=== PATIENT | female | born 1955 | race Caucasian/White ===

== ENCOUNTER 2017-01-20 09:25 | Outpatient (CLI) | payer OTHER | END 2017-01-20 09:26 | disposition home or self-care (01) | DX: I10 Essential (primary) hypertension (principal); R73.09 Other abnormal glucose; E03.9 Hypothyroidism, unspecified ==

== ENCOUNTER 2017-05-13 08:25 | Outpatient (CLI) | payer OTHER ==
[2017-05-13 09:00] LABS: HEMOGLOBIN A1C 0.59 g/dL
[2017-05-13 09:02] LABS: CHOL/HDL RATIO 2.9 (<4.4); CHOLESTEROL 185 mg/dL; HDL CHOLESTEROL 63 mg/dL; LDL/HDL RATIO 1.6 (<4.4); TRIGLYCERIDES 101 mg/dL; VLDL CHOLESTEROL 20 mg/dL
== END 2017-05-13 08:26 | disposition home or self-care (01) ==
LOC: LAB 08:25
PROVIDERS: ATTEND Family Medicine
DX: E78.5 Hyperlipidemia, unspecified (principal); R73.03 Prediabetes
CPT/HCPCS: 36415; 80061; 83036

== ENCOUNTER 2018-03-28 08:00 | Outpatient (CLI) | payer OTHER ==
[2018-03-28 12:58] LABS: ALBUMIN 4.1 g/dL (3.2-5.5); ALBUMIN/GLOBULIN RATIO 1.3 (1.0-2.2); ALKALINE PHOSPHATASE 61 IU/L (42-121); ALT ALANINE AMINOTRANSFERASE 30 IU/L (10-60); AST ASPARTATE AMINOTRANSFERASE 35 IU/L (10-42); BILIRUBIN,TOTAL 1.4 mg/dL (0.2-1.0); BUN - BLOOD UREA NITROGEN 10 mg/dL (6-20); CALCIUM 9.3 mg/dL (8.5-10.3); CARBON DIOXIDE - CO2 25 mmol/L (21-32); CHLORIDE 101 mmol/L (101-111); CHOL/HDL RATIO 3.2 (<4.4); CHOLESTEROL 204 mg/dL; CREATININE 0.7 mg/dL (0.4-1.0); GFR - MDRD 85 (>89); GLUCOSE 118 mg/dL (70-100); HB2 TOTAL 15.8 g/dL; HDL CHOLESTEROL 64 mg/dL; HEMOGLOBIN A1C 0.63 g/dL; HEMOGLOBIN A1C % 5.8 % (4.6-6.2); LDL CHOLESTEROL,CALCULATED 115 mg/dL; LDL/HDL RATIO 1.8 (<4.4); SODIUM 137 mmol/L (135-145); TOTAL PROTEIN 7.3 g/dL (6.7-8.2); VLDL CHOLESTEROL 25 mg/dL
[2018-03-28 13:00] LABS: BASOPHILS # (AUTO) 0.1 10^3/uL (0.0-0.1); BASOPHILS % (AUTO) 1.1 %; EOSINOPHILS # (AUTO) 0.2 10^3/uL (0.0-0.7); HGB - HEMOGLOBIN 13.9 g/dL (12.0-16.0); LYMPHOCYTES # (AUTO) 1.8 10^3/uL (1.5-3.5); MEAN CORPUSCULAR HEMOGLOBIN 30.5 pg (27.0-31.0); MEAN CORPUSCULAR HGB CONC 33.7 g/dL (32.0-36.0); MEAN CORPUSCULAR VOLUME 90.6 fL (81.0-99.0); MEAN PLATELET VOLUME 8.2 fL (7.9-10.8); MONOCYTES # (AUTO) 0.6 10^3/uL (0.0-1.0); NEUTROPHILS % (AUTO) 53.9 %; PLT - PLATELET COUNT 273 10^3/uL (130-450); RED BLOOD COUNT 4.55 10^6/uL (4.20-5.40); RED CELL DISTRIBUTION WIDTH 13.1 % (12.0-15.0); WHITE BLOOD COUNT 5.7 x10^3/uL (4.8-10.8)
== END 2018-03-28 08:01 | disposition home or self-care (01) ==
LOC: LAB.WCP 08:00
PROVIDERS: ATTEND Family Medicine
DX: I10 Essential (primary) hypertension (principal); E78.5 Hyperlipidemia, unspecified; R73.09 Other abnormal glucose; E03.9 Hypothyroidism, unspecified
CPT/HCPCS: 36415; 80053; 80061; 83036; 83721; 84443; 85025

== ENCOUNTER 2019-02-27 08:00 | Outpatient (CLI) | payer OTHER ==
[2019-02-27 12:33] LABS: BASOPHILS # (AUTO) 0.1 10^3/uL (0.0-0.1); EOSINOPHILS # (AUTO) 0.1 10^3/uL (0.0-0.7); EOSINOPHILS % (AUTO) 2.8 %; LYMPHOCYTES # (AUTO) 1.8 10^3/uL (1.5-3.5); LYMPHOCYTES % (AUTO) 35.1 %; MEAN CORPUSCULAR HEMOGLOBIN 30.3 pg (27.0-31.0); MEAN CORPUSCULAR HGB CONC 33.8 g/dL (32.0-36.0); MEAN CORPUSCULAR VOLUME 89.7 fL (81.0-99.0); MEAN PLATELET VOLUME 8.3 fL (7.9-10.8); MONOCYTES # (AUTO) 0.5 10^3/uL (0.0-1.0); MONOCYTES % (AUTO) 10.5 %; NEUTROPHILS # (AUTO) 2.6 10^3/uL (1.5-6.6); NEUTROPHILS % (AUTO) 50.6 %; PLT - PLATELET COUNT 262 10^3/uL (130-450); RED BLOOD COUNT 4.62 10^6/uL (4.20-5.40); RED CELL DISTRIBUTION WIDTH 13.1 % (12.0-15.0); WHITE BLOOD COUNT 5.2 x10^3/uL (4.8-10.8)
[2019-02-27 13:33] LABS: HB2 TOTAL 15.2 g/dL; HEMOGLOBIN A1C 0.59 g/dL; HEMOGLOBIN A1C % 5.7 % (4.6-6.2)
[2019-02-27 13:36] LABS: ALBUMIN 4.2 g/dL (3.2-5.5); ALBUMIN/GLOBULIN RATIO 1.3 (1.0-2.2); ALKALINE PHOSPHATASE 67 IU/L (42-121); ALT ALANINE AMINOTRANSFERASE 23 IU/L (10-60); AST ASPARTATE AMINOTRANSFERASE 25 IU/L (10-42); BILIRUBIN,TOTAL 1.2 mg/dL (0.2-1.0); BUN - BLOOD UREA NITROGEN 11 mg/dL (6-20); CALCIUM 9.2 mg/dL (8.5-10.3); CARBON DIOXIDE - CO2 27 mmol/L (21-32); CHLORIDE 101 mmol/L (101-111); CHOL/HDL RATIO 2.7 (<4.4); CHOLESTEROL 190 mg/dL; CREATININE 0.6 mg/dL (0.4-1.0); GFR - MDRD 101 (>89); GLUCOSE 113 mg/dL (70-100); HDL CHOLESTEROL 70 mg/dL; LDL CHOLESTEROL,CALCULATED 97 mg/dL; LDL/HDL RATIO 1.4 (<4.4); SODIUM 136 mmol/L (135-145); TOTAL PROTEIN 7.4 g/dL (6.7-8.2); VLDL CHOLESTEROL 23 mg/dL
[2019-02-27 13:49] LABS: CREATININE,URINE 75.8 mg/dL
[2019-02-27 13:50] LABS: MICROALBUMIN,URINE < 0.2 mg/dL (0-300.0)
== END 2019-02-27 23:59 | disposition home or self-care (01) ==
LOC: LAB.WCP 08:00
PROVIDERS: ATTEND Family Medicine
DX: I10 Essential (primary) hypertension (principal); E78.5 Hyperlipidemia, unspecified; R73.09 Other abnormal glucose; E03.9 Hypothyroidism, unspecified
CPT/HCPCS: 36415; 80053; 80061; 82043; 82570; 83036; 83721; 84443; 85025

== ENCOUNTER 2019-04-03 13:30 | Outpatient (CLI) | payer OTHER ==
--- NOTE | 2019-04-03 16:51 | Mammography Report ---
Reason: SCREENING MAMMO Procedure Date: 04/03/2019 Accession Number: [id number] / [id number] Procedure: MGN - Screening Mammo Dig Bilat CPT Code: FULL RESULT: EXAM: Screening Mammo Dig Bilat DATE: 04/03/2019 1:48 PM CLINICAL HISTORY: Routine screening. No reported personal history of breast cancer. Family history breast cancer paternal grandmother age 80. TECHNIQUE: (B) - Bilateral CC and MLO views were obtained. COMPARISON: 09/09/2016 through 06/08/2010 PARENCHYMAL PATTERN: (A) - The breasts demonstrate scattered fibroglandular densities bilaterally. FINDINGS: Bilateral breasts: There are no suspicious masses, calcifications, or areas of distortion. IMPRESSION: Negative examination. BI-RADS category 1. RECOMMENDATION: (ANNUAL) - Recommend routine annual screening mammography. BI-RADS CATEGORY: (1) - Negative. STANDARD QUALIFYING STATEMENTS: 1. This examination was not reviewed with the aid of Computer-Aided Detection (CAD). 2. A negative or benign imaging report should not preclude biopsy if clinically suspicious findings are present. 3. Dense breasts may obscure an underlying neoplasm. 4. This examination was reviewed without the aid of 3D breast imaging (tomosynthesis).
== END 2019-04-03 13:31 | disposition home or self-care (01) ==
LOC: DI.N 13:30
DX: Z12.31 Encounter for screening mammogram for malignant neoplasm of breast (principal); Z80.3 Family history of malignant neoplasm of breast
CPT/HCPCS: 77067

== ENCOUNTER 2019-06-19 12:41 | Outpatient (CLI) | payer OTHER ==
--- NOTE | 2019-06-21 09:28 | XRAY Report ---
Reason: SWALLOWING PROBLEM Procedure Date: 06/19/2019 Accession Number: [id number] / [id number] Procedure: FL - Esophogram CPT Code: FULL RESULT: EXAM: BARIUM ESOPHAGRAM EXAM DATE: 06/19/2019 01:46 PM. CLINICAL HISTORY: Swallowing problem. COMPARISONS: None. TECHNIQUE: Routine double contrast esophagram. Fluoroscopy Time: 1 minute 1 second. Number of Images: 31. FINDINGS: Swallowing Mechanism: Normal. No tracheal aspiration or penetration. Esophageal Motility: Initially normal peristaltic stripping wave with subsequent mild diffuse esophageal spasm. Mucosa: Normal. No ulcerations or masses. Gastroesophageal Junction: Normal. No hernia, stricture, or significant reflux. Other: None. IMPRESSION: Esophageal spasm with uncoordinated stripping wave. RADIA
== END 2019-06-19 12:42 | disposition home or self-care (01) ==
LOC: DI 12:41
PROVIDERS: ATTEND Family Medicine
DX: R13.10 Dysphagia, unspecified (principal); K22.4 Dyskinesia of esophagus
CPT/HCPCS: 74220

== ENCOUNTER 2019-12-24 14:20 | Outpatient (CLI) | payer OTHER ==
--- NOTE | 2019-12-25 06:08 | XRAY Report ---
Reason: NECK AND BACK PAIN Procedure Date: 12/24/2019 Accession Number: [id number] / [id number] Procedure: XRN - Lumbar Spine Complete CPT Code: Final Report FULL RESULT: EXAM: LUMBOSACRAL SPINE RADIOGRAPHY EXAM DATE: 12/24/2019 02:56 PM CLINICAL HISTORY: Chronic low back pain. COMPARISONS: None. TECHNIQUE: 5 views. FINDINGS: Alignment: Grade 1 anterolisthesis at L4-L5 measures 2 mm. There is no scoliosis. Bones: Five [id number] lumbar vertebral bodies are present. Mild anterior wedging deformity of L2 is noted with less than 20% vertebral body height loss, likely representing a subacute to chronic anterior wedge compression fracture. No acute lumbar spine fracture is seen elsewhere. Disks: Mild to moderate disk height loss is noted at all lumbar levels, greatest at L4-L5 and L5-S1. Facets: Mild facet arthropathy is present at L4-L5 and L5-S1. Sacroiliac Joints: Unremarkable. Soft Tissues: Normal. The visualized bowel gas pattern is normal. IMPRESSION: 1. Suspect a subacute to chronic anterior wedge compression fracture of L2 with less than 20% vertebral body height loss. 2. No acute lumbar spine fracture is identified. 3. Mild multilevel degenerative changes are present, greatest at L4-L5 and L5-S1. RADIA
--- NOTE | 2019-12-25 06:23 | XRAY Report ---
Reason: NECK AND BACK PAIN Procedure Date: 12/24/2019 Accession Number: [id number] / [id number] Procedure: XRN - Cervical Spine 2 View CPT Code: Final Report FULL RESULT: EXAM: CERVICAL SPINE RADIOGRAPHY EXAM DATE: 12/24/2019 02:56 PM CLINICAL HISTORY: Intermittent neck pain for 5 weeks. COMPARISONS: None. TECHNIQUE: 4 views. FINDINGS: Alignment: Normal. No spondylolisthesis or scoliosis. Bones: The cervical vertebral bodies and posterior elements are well visualized from the skull base through C7-T1. No acute cervical spine fracture is identified. Anteriorly projecting osteophytes are present at C4-C5, C5-C6, and C6-C7. Disks: Moderate disk height loss is noted at C4-C5, C5-C6, and C6-C7. Facets: Mild facet arthropathy is present in the mid to lower cervical spine. Soft Tissues: Normal. No prevertebral soft tissue swelling. The visualized lung apices are clear. IMPRESSION: 1. No acute cervical spine fracture. 2. Moderate multilevel degenerative changes are present, greatest at C4-C5, C5-C6, and C6-C7. RADIA
== END 2019-12-24 14:21 | disposition home or self-care (01) ==
LOC: DI.N 14:20
PROVIDERS: ATTEND Family Medicine
DX: M47.816 Spondylosis without myelopathy or radiculopathy, lumbar region (principal); M47.817 Spondylosis without myelopathy or radiculopathy, lumbosacral region; M51.36 Other intervertebral disc degeneration, lumbar region; M51.37 Other intervertebral disc degeneration, lumbosacral region; M43.16 Spondylolisthesis, lumbar region; M50.321 Other cervical disc degeneration at C4-C5 level; M47.812 Spondylosis without myelopathy or radiculopathy, cervical region
CPT/HCPCS: 72040; 72110

== ENCOUNTER 2020-01-14 12:59 | Outpatient (CLI) | payer OTHER ==
--- NOTE | 2020-01-20 13:23 | DEXA Report ---
Reason: NECK AND BACK PAIN Procedure Date: 01/14/2020 Accession Number: [id number] / [id number] Procedure: DEX - Dexa Spine and/or Hip CPT Code: Final Report FULL RESULT: EXAM: Dexa Spine and/or Hip DATE: 01/14/2020 1:37 PM CLINICAL HISTORY: NECK AND BACK PAIN TECHNIQUE: Dual energy x-ray absorptiometry (DXA) was performed on a EverPresent System. Regions measured are the AP Spine, femoral neck, and if needed forearm. COMPARISON: None. In accordance with the International Society for Clinical Densitometry (ISCD) guidelines, data from previous exams may be reanalyzed using current recommendations and techniques. This is done to allow a more accurate basis for comparison with the current study. FINDINGS: The data for the lumbar spine is as follows: BMD (g/cm/cm) T-SCORE Z-SCORE REGION L1 1.275 1.2 1.5 L2 1.341 1.2 1.4 L3 1.326 1.0 1.3 L4 1.272 0.6 0.9 TOTAL 1.302 1.0 1.3 NOTE: All evaluable vertebrae are used for classification The data for the hip is as follows: BMD (g/cm/cm) T-SCORE Z-SCORE REGION Neck 0.962 -0.5 0.1 TOTAL 1.137 1.0 1.3 NOTE: The femoral neck or total proximal femur, whichever is lowest, is used for classification. IMPRESSION: THE WHO CLASSIFICATION BASED ON THE INTERNATIONAL REFERENCE STANDARD IS NORMAL. THE FRACTURE RISK IS NOT INCREASED. RECOMMENDATION: Patients with diagnosis of osteoporosis or osteopenia should have regular bone mineral density assessment. For those eligible for Medicare, routine testing is allowed once every 2 years. Testing frequency can be increased for patients who have rapidly progressing disease or for those who are receiving medical therapy to restore bone mass. COMMENT: World Health Organization (WHO) definitions for osteoporosis and osteopenia: NORMAL BMD: T-score at -1.0 or higher, fracture risk is low OSTEOPENIA BMD: T-score between -1.0 and -2.5, fracture risk is increased. OSTEOPOROSIS BMD: T-score at -2.5 or lower, fracture risk is high. National Osteoporosis Foundation recommends: 1. Obtain adequate dietary calcium (at least 1200 mg per day) and vitamin D (400-800 international units per day). 2. Participate, as appropriate, in regular weightbearing and muscle-strengthening exercise. 3. Avoid tobacco use and reduce alcohol and caffeine intake. 4. For more detailed information see the website at www.NOF.org.
== END 2020-01-14 13:00 | disposition home or self-care (01) ==
LOC: DI 12:59
PROVIDERS: ATTEND Family Medicine
DX: M54.2 Cervicalgia (principal)
CPT/HCPCS: 77080

== ENCOUNTER 2020-07-21 07:40 | Outpatient (CLI) | payer OTHER ==
[2020-07-21 12:18] LABS: BASOPHILS % (AUTO) 0.9 %; EOSINOPHILS # (AUTO) 0.1 10^3/uL (0.0-0.7); EOSINOPHILS % (AUTO) 2.4 %; LYMPHOCYTES # (AUTO) 1.6 10^3/uL (1.5-3.5); LYMPHOCYTES % (AUTO) 35.1 %; MEAN CORPUSCULAR HEMOGLOBIN 30.3 pg (27.0-31.0); MEAN CORPUSCULAR HGB CONC 32.4 g/dL (32.0-36.0); MEAN CORPUSCULAR VOLUME 93.5 fL (81.0-99.0); MEAN PLATELET VOLUME 10.2 fL (7.9-10.8); MONOCYTES # (AUTO) 0.5 10^3/uL (0.0-1.0); MONOCYTES % (AUTO) 10.7 %; NEUTROPHILS # (AUTO) 2.3 10^3/uL (1.5-6.6); NEUTROPHILS % (AUTO) 50.9 %; PLT - PLATELET COUNT 286 10^3/uL (130-450); RED BLOOD COUNT 4.62 10^6/uL (4.20-5.40); RED CELL DISTRIBUTION WIDTH 12.3 % (12.0-15.0); WHITE BLOOD COUNT 4.5 x10^3/uL (4.8-10.8)
[2020-07-21 12:29] LABS: ALBUMIN 4.2 g/dL (3.2-5.5); ALBUMIN/GLOBULIN RATIO 1.3 (1.0-2.2); BILIRUBIN,TOTAL 1.2 mg/dL (0.2-1.0); CALCIUM 9.4 mg/dL (8.5-10.3); CREATININE 0.8 mg/dL (0.4-1.0); TOTAL PROTEIN 7.5 g/dL (6.7-8.2)
[2020-07-21 13:22] LABS: HEMOGLOBIN A1c% 5.7 % (4.27-6.07)
== END 2020-07-21 23:59 | disposition home or self-care (01) ==
LOC: LAB.WCP 07:40
PROVIDERS: ATTEND Family Medicine
DX: R73.09 Other abnormal glucose (principal); I10 Essential (primary) hypertension
CPT/HCPCS: 36415; 80053; 83036; 84443; 85025

== ENCOUNTER 2021-03-01 07:00 | Outpatient (CLI) | payer OTHER ==
[2021-03-01 12:20] LABS: CREATININE,URINE 17.3 mg/dL; MICROALBUMIN,URINE < 0.2 mg/dL (0-300.0)
[2021-03-01 12:35] LABS: ESTIMATED AVERAGE GLUCOSE 108 mg/dL (70-100); HEMOGLOBIN A1c% 5.4 % (4.27-6.07)
[2021-03-01 12:43] LABS: CALCIUM 10.2 mg/dL (8.5-10.3); CREATININE 0.7 mg/dL (0.4-1.0); POTASSIUM 3.9 mmol/L (3.5-5.0)
== END 2021-03-01 23:59 | disposition home or self-care (01) ==
LOC: LAB.WCP 07:00
PROVIDERS: ATTEND Internal Medicine
DX: R73.03 Prediabetes (principal)
CPT/HCPCS: 36415; 80048; 82043; 82570; 83036

== ENCOUNTER 2021-04-01 10:08 | Outpatient (CLI) | payer OTHER ==
--- NOTE | 2021-04-02 10:48 | Mammography Report ---
BILATERAL DIGITAL SCREENING MAMMOGRAM 3D/2D: 04/01/2021 CLINICAL: Routine screening. Comparison is made to exams dated: 04/03/2019 mammogram, 09/09/2016 mammogram, 09/03/2015 mammogram, and 03/12/2012 mammogram - [facility]. There are scattered fibroglandular elements in both breasts. No significant masses, calcifications, or other findings are seen in either breast. There has been no significant interval change. IMPRESSION: NEGATIVE There is no mammographic evidence of malignancy. A 1 year screening mammogram is recommended. This exam was interpreted at Station ID: [id number]. NOTE: For mammograms, a report in lay terms will be sent to the patient. Approximately 15% of breast malignancies will not be visualized mammographically. In the management of a palpable breast mass, a negative mammogram must not discourage biopsy of a clinically suspicious lesion. Electronically Signed By: Tim Hanna M.D. [email or web address]:04/01/2021 11:12:23 ACR BI-RADS Category 1: Negative 3341F PARENCHYMAL PATTERN: (A) - The breast(s) demonstrate(s) scattered fibroglandular densities. BI-RADS CATEGORY: (1) - 1 RECOMMENDATION: (ANNUAL) - Recommend routine annual screening mammography. [id number] 1 year screening LATERALITY: (B)
== END 2021-04-01 10:09 | disposition home or self-care (01) ==
LOC: DI.N 10:08
DX: Z12.31 Encounter for screening mammogram for malignant neoplasm of breast (principal)